=== PATIENT | female | born 1990 | race Caucasian/White ===

== ENCOUNTER 2018-12-06 13:20 | Emergency (ER) | payer BC ==
[~2018-12-06] VITALS: Ht 162.6 cm; Wt 51.9 kg
[2018-12-06 13:44] VITALS: BP 145/104
[2018-12-06 14:28] LABS: APPEARANCE,URINE CLEAR (CLEAR); BILIRUBIN,URINE NEGATIVE (NEGATIVE); BLOOD, URINE 3+ (NEGATIVE); COLOR,URINE YELLOW (YELLOW); LEUKOCYTE ESTERASE ,URINE NEGATIVE (NEGATIVE); NITRITE, URINE NEGATIVE (NEGATIVE); PH,URINE 6.5 (5.0-9.0); UGLUCOSE NEGATIVE (NEGATIVE)
[2018-12-06 14:29] LABS: BASOPHILS # (AUTO) 0.1 K/uL (0.00-0.22); BASOPHILS % (AUTO) 1.5 % (0.0-2.0); EOSINOPHILS # (AUTO) 0.4 K/uL (0-0.4); EOSINOPHILS % (AUTO) 6.9 % (0.0-4.0); HEMATOCRIT 40.3 % (36-48); HEMOGLOBIN 13.4 g/dL (12.0-16.0); LYMPHOCYTES # (AUTO) 1.5 K/uL (2.5-16.5); LYMPHOCYTES % (AUTO) 24.2 % (20.5-51.1); MEAN CORPUSCULAR HEMOGLOBIN 29 pg (27-31); MEAN CORPUSCULAR HGB CONC 33 g/dL (33-37); MEAN CORPUSCULAR VOLUME 87.5 fL (80-94); MONOCYTES # (AUTO) 0.4 K/uL (0.8-1.0); MONOCYTES % (AUTO) 7.1 % (1.7-9.3); NEUTROPHILS # (AUTO) 3.7 K/uL (1.8-7.7); NEUTROPHILS % (AUTO) 60.3 % (42.2-75.2); PLATELET COUNT (AUTO) 233 K/uL (140-450); RED BLOOD CELL COUNT(AUTO) 4.61 MIL/uL (4.20-5.40); RED CELL DISTRIBUTION WIDTH 12.7 % (11.6-13.7); WHITE BLOOD COUNT (AUTO) 6.2 K/uL (4.8-10.8)
[2018-12-06 14:58] LABS: WBC,URINE 0-5 /HPF (0-5)
--- NOTE | 2018-12-06 16:53 | NUR ---
PT AMBULATED TO BED 06.
--- NOTE | 2018-12-06 16:55 | NUR ---
BIB . PT AAO X4 C/O VAGINAL BLEEDING X2 DAYS. PT REPORTS BLEEDING ONLY WHEN USING RESTROOM. PT 6 WEEKS , LMP 10/24/18, PATTY 07/31/19, . - PAIN, N/V, FEVER. HOB UP. BED SIDE RAILS UP X1. ER TO EVALUATE PT.
--- NOTE | 2018-12-06 17:10 | NUR ---
DR WILSON AT BEDSIDE FOR PT EVALUATION
[2018-12-06 18:02] LABS: ANION GAP 12.5 (8-16); CARBON DIOXIDE 27.4 mmol/L (21-32); CREATININE 0.6 mg/dL (0.6-1.3); POTASSIUM 3.9 mmol/L (3.5-5.1)
[2018-12-06 18:14] LABS: ALBUMIN 3.7 g/dL (3.4-5.0); TOTAL BILIRUBIN 0.3 mg/dL (0.0-1.0)
--- NOTE | 2018-12-06 19:15 | NUR ---
Pt report given to MINOO EL. Transfer of care at this time.
--- NOTE | 2018-12-06 19:16 | NUR ---
RECEIVED REPORT AT BEDSIDE FROM MINOO PEOPLES. PT SITTING IN BED WAITING FOR D/C PAPERWORK. VSS.
[2018-12-06 19:35] VITALS: BP 143/93
--- NOTE | 2018-12-06 19:35 | NUR ---
Patient discharged with v/s stable. Written and verbal after care instructions given and explained. Patient verbalized understanding. Ambulatory with steady gait. All questions addressed prior to discharge. INSTRUCTIONS TO RETURN IN 48HRS FOR REPEAT HCG LEVELS GIVEN. Advised to follow up with PMD.
== END 2018-12-06 19:35 | disposition home or self-care (01) ==
LOC: MED 13:20
DX: O20.0 Threatened abortion (principal); Z3A.01 Less than 8 weeks gestation of pregnancy
CPT/HCPCS: 36415; 76801; 80053; 81001; 81025; 84702; 85025; 86900; 86901; 87205; 87210; 99284; Q0092